=== PATIENT | male | born 1990 ===

== ENCOUNTER 2017-11-29 21:57 | Inpatient (IN) | payer MEDICARE ==
--- NOTE | 2017-11-29 22:11 | PDOC ---
History of Present Illness - General Chief Complaint: Coffee Ground Emesis Stated Complaint: DARK EMESIS Time Seen by Provider: 11/29/17 22:06 History Source: Patient Exam Limitations: No Limitations - History of Present Illness Initial Comments: 11/29/17 22:20 This is a 27-year-old male who comes in complaining of 2-3 days of indigestion epigastric pain and then this evening he said he has had 2 episodes of dark coffee ground type emesis with dark tarry stools. Patient also complaining that he is feeling lightheaded and nauseous at this time. Patient denies any recent use of NSAIDs. Patient says he is otherwise healthy and takes no medications. Patient denies any pain at this time. PAST MEDICAL HISTORY: no significant history PAST SURGICAL HISTORY: no significant history FAMILY HISTORY: no pertinant history SOCIAL HISTORY: Pt lives with family and is employed. MEDICATIONS: reviewed ALLERGIES: As per nursing notes Review of Systems General: No fevers or chills, no weakness, no weight loss HEENT: No change in vision. No sore throat,. No ear pain CardioVascular: No chest pain or shortness of breath Respiratory:No cough, or wheezing. Gastrointestinal: + nausea, +vomitting, no diarrhea or constipation, + dark stools Genitourinary: No dysuria, hematuria, or frequency Musculoskeletal: No joint or muscle pain or swelling Neurologic: No headache, vertigo, dizziness or loss of consciousness Psychiatric: nor depression Skin: No rashes or easy bruising Endocrine: no increased thirst or abnormal weight change Allergic: no skin or latex allergy All other systems reviewed and normal Exam: General: Well-nourished well-developed individual, no acute distress HEENT: Throat: Normal, tonsils normal, no erythema or exudate Neck: Supple, no meningeal signs, no lymphadenopathy Eyes::Pupils equal reactive and round, extraocular motion intact Chest: Nontender to palpation Cardiac: S1-S2 normal, regular rate and rhythm, no murmurs rubs or gallops Respiratory: Lungs clear to auscultation bilateral Abdomen: Soft, nondistended, normal bowel sounds, nontender to palpation diffusely Rectal: Nontender exam with dark tarry stool Extremities: Warm, dry, no cyanosis, clubbing, or edema Skin: No rashes Neuro: Alert and oriented x3, CN II - XII intact, nonfocal exam with normal strength, normal sensation, normal reflexes, normal gait, Psych: Normal mood and affect Procedure note NG tube placement NG tube was placed by me. Post tube placement there was approximately 100 mL of coffee-ground liquid suctioned. NG tube was left in place for approximately one hour post one hour no further drainage and NG tube was irrigated with return of clear fluid. NG tube was removed. Medical decision making: This is a 27-year-old male with an upper GI bleed. Patient arrives tachycardic well give 1 L of fluid wide open and reassess heart rate. Pepcid ordered Lab sent CBC, comp, type and screen, Will reassess 12MN Post 1 L fluid patient's heart rate is now around 100. Patient is hemodynamically stable. Patient feels better no further vomiting. Assessment and plan: This is a 27-year-old male who comes in with upper GI bleed. Patient had coffee-ground emesis guaiac-positive dark tarry stool. Patient H&H initially is 11 and 33. Patient will be placed in observation bed for further management and GI consult/ evaluation. Past History - Past Medical History Allergies/Adverse Reactions: Allergies Allergy/AdvReac Type Severity Reaction Status Date / Time No Known Allergies Allergy Verified 11/29/17 22:05 Home Medications: Ambulatory Orders NK [No Known Home Medication] 11/29/17 ED Treatment Course - LABORATORY CBC & Chemistry Diagram: 11/29/17 22:42 11/29/17 22:42 *DC/Admit/Observation/Transfer Diagnosis at time of Disposition: Upper GI bleed - Discharge Dispostion Condition at time of disposition: Good Admit: Yes - Referrals - Patient Instructions - Post Discharge Activity
[2017-11-29] MEDS ORDERED: SODIUM CHLORIDE 1,000 ML IV ONE ×3 (22:25→22:50)
[2017-11-29] MEDS ORDERED: ONDANSETRON 4 MG/2 ML VIAL IVPB ONE (22:26)
[2017-11-29] MEDS ORDERED: PANTOPRAZOLE SODIUM 40 MG VIAL IVPUSH ONE (22:30)
[2017-11-29] MEDS ORDERED: PANTOPRAZOLE SODIUM 40 MG VIAL ONE (22:44)
[2017-11-29 23:07] LABS: BASO % 0.1 % (0-2.0); EOS % 0.5 % (0-4.5); HEMATOCRIT 33.4 % (35.4-49); HEMOGLOBIN 11.2 GM/dL (11.7-16.9); LYMPH % 11.4 % (8-40); MCH 29.6 pg (25.7-33.7); MCHC 33.6 g/dl (32.0-35.9); MEAN CELL VOLUME 88.1 fl (80-96); MEAN PLT VOLUME 9.7 fl (7.5-11.1); MONO % 5.4 % (3.8-10.2); NEUT % 82.6 % (42.8-82.8); PLATELET COUNT 367 K/MM3 (134-434); RDW 12.5 % (11.9-15.9); WHITE BLOOD COUNT 22.3 K/mm3 (4.0-10.0)
[2017-11-29 23:23] LABS: BILIRUBIN,TOTAL 0.3 mg/dL (0.2-1.0); CHLORIDE 100 mmol/L (98-107); POTASSIUM 3.8 mmol/L (3.5-5.1); SODIUM 139 mmol/L (136-145)
[2017-11-29 23:32] LABS: INR 1.12 (0.82-1.09); PROTHROMBIN TIME (PATIENT) 12.6 SEC (9.98-11.88)
[2017-11-29 23:34] LABS: ANION GAP 12 (8-16); BLOOD UREA NITROGEN 36 mg/dL (7-18); CALCIUM 9.4 mg/dL (8.5-10.1); CO2 27 mmol/L (21-32); GLUCOSE,RANDOM 129 mg/dL (74-106)
[2017-11-29 23:41] LABS: ALK PHOS 55 U/L (45-117); CREATININE 1.1 mg/dL (0.7-1.3); SGOT/AST 14 U/L (15-37); SGPT/ALT 26 U/L (12-78)
[2017-11-30] MEDS ORDERED: PANTOPRAZOLE SODIUM 80 MG in SODIUM CHLORIDE 100 ML IVPB SCH (00:30)
[2017-11-30 02:31] VITALS: BMI 23.1
[2017-11-30 04:28] LABS: BASO % 0.1 % (0-2.0); EOS % 0.1 % (0-4.5); HEMATOCRIT 26.3 % (35.4-49); HEMOGLOBIN 8.7 GM/dL (11.7-16.9); LYMPH % 10.5 % (8-40); MCH 29.5 pg (25.7-33.7); MCHC 33.2 g/dl (32.0-35.9); MEAN CELL VOLUME 88.9 fl (80-96); MEAN PLT VOLUME 9.7 fl (7.5-11.1); MONO % 2.2 % (3.8-10.2); NEUT % 87.1 % (42.8-82.8); PLATELET COUNT 266 K/MM3 (134-434); RBC 2.96 M/mm3 (4.00-5.60); RDW 12.3 % (11.9-15.9)
[2017-11-30] MEDS ORDERED: ACETAMINOPHEN 1000 MG/100 ML VIAL (NON FORMULARY) IVPB PRN (07:05)
[2017-11-30 07:33] LABS: BASO % 0.2 % (0-2.0); EOS % 0.9 % (0-4.5); HEMATOCRIT 23.5 % (35.4-49); LYMPH % 28.3 % (8-40); MCH 29.8 pg (25.7-33.7); MCHC 33.9 g/dl (32.0-35.9); MEAN CELL VOLUME 87.9 fl (80-96); MEAN PLT VOLUME 8.9 fl (7.5-11.1); NEUT % 65.6 % (42.8-82.8); PLATELET COUNT 240 K/MM3 (134-434); RBC 2.68 M/mm3 (4.00-5.60); RDW 12.5 % (11.9-15.9); WHITE BLOOD COUNT 11.9 K/mm3 (4.0-10.0)
[2017-11-30 07:44] LABS: INR 1.17 (0.82-1.09); PROTHROMBIN TIME (PATIENT) 13.2 SEC (9.98-11.88)
[2017-11-30 07:47] LABS: ACTIVATED PTT 26.6 SECONDS (26.9-34.4)
[2017-11-30 08:23] LABS: ANION GAP 8 (8-16); BLOOD UREA NITROGEN 21 mg/dL (7-18); CALCIUM 7.4 mg/dL (8.5-10.1); CHLORIDE 107 mmol/L (98-107); CO2 28 mmol/L (21-32); CREATININE 1.1 mg/dL (0.7-1.3); GLUCOSE,RANDOM 100 mg/dL (74-106); POTASSIUM 3.7 mmol/L (3.5-5.1); SODIUM 143 mmol/L (136-145)
--- NOTE | 2017-11-30 09:58 | HP ---
CHIEF COMPLAINT: Coffee-ground emesis and epigastric pain PCP: None HISTORY OF PRESENT ILLNESS: 27 year-old male with no PMH presents to the ED with a complaint epigastric pain x 2-3 days, and several episodes of coffee-ground emesis and dark, watery stools just prior to his presentation in the ED. 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 The epigastric pain started after he had whiskey, beer, and chile. It is not unusual for him to eat and drink in this fashion, but he thinks "it's starting to catch up with me." Patient has an identical twin brother who was recently diagnosed with gastric ulcers. Patient denies fever, sweats, chills. 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 Smoking: quit a few months ago Alcohol: several times per week Drugs: has tried cocaine and marijuana, no recent use Family History: mother and father both a&w; identical twin brother with recent diagnosis of gastric ulcers Allergies No Known Allergies Allergy (Verified 11/29/17 22:05) HOME MEDICATIONS: Home Medications Medication Instructions Recorded NK [No Known Home Medication] 11/29/17 REVIEW OF SYSTEMS CONSTITUTIONAL: Absent: fever, chills, diaphoresis, generalized weakness, malaise, loss of appetite, weight change HEENT: Absent: rhinorrhea, nasal congestion, throat pain, throat swelling, difficulty swallowing, mouth swelling, ear pain, eye pain, visual changes CARDIOVASCULAR: Absent: chest pain, syncope, palpitations, irregular heart rate, lightheadedness , peripheral edema RESPIRATORY: Absent: cough, shortness of breath, dyspnea with exertion, orthopnea, wheezing, stridor, hemoptysis GASTROINTESTINAL: +epigastric pain, nausea, vomiting coffee-ground liquid, diarrhea Absent: abdominal pain, abdominal distension, nausea, vomiting, diarrhea, constipation, melena, hematochezia GENITOURINARY: Absent: dysuria, frequency, urgency, hesitancy, hematuria, flank pain, genital pain MUSCULOSKELETAL: Absent: myalgia, arthralgia, joint swelling, back pain, neck pain SKIN: Absent: rash, itching, pallor HEMATOLOGIC/IMMUNOLOGIC: Absent: easy bleeding, easy bruising, lymphadenopathy, frequent infections ENDOCRINE: Absent: unexplained weight gain, unexplained weight loss, heat intolerance, cold intolerance NEUROLOGIC: Absent: headache, focal weakness or paresthesias, dizziness, unsteady gait, seizure, mental status changes, bladder or bowel incontinence PSYCHIATRIC: Absent: anxiety, depression, suicidal or homicidal ideation, hallucinations. PHYSICAL EXAMINATION Vital Signs - 24 hr 11/29/17 11/29/17 11/30/17 22:06 23:27 02:19 Temperature 98.6 F 98.1 F Pulse Rate 120 H 95 H Pulse Rate [ 100 H Left] Respiratory 16 16 18 Rate Blood Pressure 124/96 120/51 Blood Pressure 138/79 [Right] O2 Sat by Pulse 100 100 100 Oximetry (%) 11/30/17 11/30/17 11/30/17 07:22 07:39 09:43 Temperature 98.4 F 98.5 F Pulse Rate 97 H 83 Pulse Rate [ Left] Respiratory 18 18 18 Rate Blood Pressure 111/58 111/51 Blood Pressure [Right] O2 Sat by Pulse 97 97 100 Oximetry (%) GENERAL: Awake, alert, and fully oriented, in no acute distress. HEAD: Normal with no signs of trauma. EYES: Pupils equal, round and reactive to light, extraocular movements intact, sclera anicteric, conjunctiva clear. No lid lag. EARS, NOSE, THROAT: Ears normal, nares patent, oropharynx clear without exudates. Moist mucous membranes. NECK: Normal range of motion, supple without lymphadenopathy, JVD, or masses. LUNGS: Breath sounds equal, clear to auscultation bilaterally. No wheezes, and no crackles. No accessory muscle use. HEART: Regular rate and rhythm, normal S1 and S2 without murmur, rub or gallop. ABDOMEN: Soft, nontender, not distended, normoactive bowel sounds, no guarding, no rebound, no masses. MUSCULOSKELETAL: Normal range of motion at all joints. No bony deformities or tenderness. No CVA tenderness. UPPER EXTREMITIES: 2+ pulses, warm, well-perfused. No cyanosis. No clubbing. No peripheral edema. LOWER EXTREMITIES: 2+ pulses, warm, well-perfused. No calf tenderness. No peripheral edema. NEUROLOGICAL: Cranial nerves II-XII intact. Normal speech. Normal gait. PSYCHIATRIC: Cooperative. Good eye contact. Appropriate mood and affect. SKIN: Warm, dry, normal turgor, no rashes or lesions noted, normal capillary refill. Laboratory Results - last 24 hr 11/29/17 11/29/17 11/29/17 22:25 22:42 22:42 WBC 22.3 H RBC 3.80 L Hgb 11.2 L Hct 33.4 L MCV 88.1 MCH 29.6 MCHC 33.6 RDW 12.5 Plt Count 367 MPV 9.7 Neutrophils % 82.6 Lymphocytes % 11.4 Monocytes % 5.4 Eosinophils % 0.5 Basophils % 0.1 PT with INR INR PTT (Actin FS) Sodium 139 Potassium 3.8 Chloride 100 Carbon Dioxide 27 Anion Gap 12 BUN 36 H Creatinine 1.1 Creat Clearance w eGFR > 60 Random Glucose 129 H Lactic Acid Calcium 9.4 Total Bilirubin 0.3 AST 14 L ALT 26 Alkaline Phosphatase 55 Total Protein 7.0 Albumin 4.0 Stool Occult Blood Blood Type A POSITIVE Antibody Screen 11/29/17 11/29/17 11/29/17 22:42 22:42 22:42 WBC RBC Hgb Hct MCV MCH MCHC RDW Plt Count MPV Neutrophils % Lymphocytes % Monocytes % Eosinophils % Basophils % PT with INR 12.60 H INR 1.12 PTT (Actin FS) Sodium Potassium Chloride Carbon Dioxide Anion Gap BUN Creatinine Creat Clearance w eGFR Random Glucose Lactic Acid Calcium Total Bilirubin AST ALT Alkaline Phosphatase Total Protein Albumin Stool Occult Blood Positive Blood Type A POSITIVE Antibody Screen Negative 11/30/17 11/30/17 11/30/17 01:22 01:35 06:40 WBC 15.0 H D 11.9 H RBC 2.96 L D 2.68 L Hgb 8.7 L D 8.0 L Hct 26.3 L D 23.5 L MCV 88.9 87.9 MCH 29.5 29.8 MCHC 33.2 33.9 RDW 12.3 12.5 Plt Count 266 D 240 MPV 9.7 8.9 Neutrophils % 87.1 H 65.6 D Lymphocytes % 10.5 28.3 D Monocytes % 2.2 L 5.0 D Eosinophils % 0.1 0.9 D Basophils % 0.1 0.2 PT with INR INR PTT (Actin FS) Sodium Potassium Chloride Carbon Dioxide Anion Gap BUN Creatinine Creat Clearance w eGFR Random Glucose Lactic Acid 2.6 H* Calcium Total Bilirubin AST ALT Alkaline Phosphatase Total Protein Albumin Stool Occult Blood Blood Type Antibody Screen 11/30/17 11/30/17 11/30/17 06:40 06:40 06:40 WBC RBC Hgb Hct MCV MCH MCHC RDW Plt Count MPV Neutrophils % Lymphocytes % Monocytes % Eosinophils % Basophils % PT with INR 13.20 H INR 1.17 H PTT (Actin FS) 26.6 L Sodium 143 Potassium 3.7 Chloride 107 Carbon Dioxide 28 Anion Gap 8 BUN 21 H D Creatinine 1.1 Creat Clearance w eGFR Random Glucose 100 D Lactic Acid 1.8 Calcium 7.4 L D Total Bilirubin AST ALT Alkaline Phosphatase Total Protein Albumin Stool Occult Blood Blood Type Antibody Screen ASSESSMENT/PLAN 27 year-old male with no significant PMH placed admitted for upper GI bleed. Upper GI bleed --coffee-ground liquid via NGT --occult stool positive --Hgb 11.2-->8.0 but dilutional component, received 3L NS in ED --repeat cbc q6h, transfuse Hgb <7 --check lipase --collect and send H.pylori stool, serum Ab (patient does NOT want EGD) --continue protonix drip --start carafate QID --IV fluids --Dr. Banks contacted, consult pending Leukocytosis --WBC 22.3-->11.9k --likely reactive --afebrile --no antibiotics for now Lactic acidosis --resolved FEN Fluids: D51/2 @ 75mL/hr Electrolytes: replete as indicated Nutrition: NPO DVT prophylaxis: subq heparin, oob, ambulation Dispo: continues to require inpatient care. Visit type - Emergency Visit Emergency Visit: Yes ED Registration Date: 11/30/17 Care time: The patient presented to the Emergency Department on the above date and was hospitalized for further evaluation of their emergent condition. - New Patient This patient is new to me today: Yes Date on this admission: 11/30/17 - Critical Care Critical Care patient: No
--- NOTE | 2017-11-30 10:11 | PN ---
Progress Note (short form) - Note Progress Note: GI NOte ( covering Dr Connolly) : I spoke with Olivia the patient's nurse to inform her that another stockkeeper on staff will need to be consulted as Dr Connolly will not be available until tomorrow and I do not have privileges at [facility]. She told me that she would notify the hospitalist.
[2017-11-30 13:04] LABS: HEMATOCRIT 25.9 % (35.4-49); HEMOGLOBIN 8.8 GM/dl (11.7-16.9); MCH 30.3 pg (25.7-33.7); MCHC 33.8 g/dl (32.0-35.9); MEAN CELL VOLUME 89.7 fl (80-96); MEAN PLT VOLUME 9.6 fl (7.5-11.1); PLATELET COUNT 278 K/MM3 (134-434); RBC 2.89 M/mm3 (4.00-5.60); RDW 11.9 % (11.9-15.9); WHITE BLOOD COUNT 10.6 K/mm3 (4.0-10.8)
[2017-11-30 19:44] LABS: HEMATOCRIT 22.8 % (35.4-49); HEMOGLOBIN 7.8 GM/dl (11.7-16.9); MCH 30.6 pg (25.7-33.7); MCHC 34.2 g/dl (32.0-35.9); MEAN CELL VOLUME 89.5 fl (80-96); MEAN PLT VOLUME 9.5 fl (7.5-11.1); PLATELET COUNT 235 K/MM3 (134-434); RBC 2.54 M/mm3 (4.00-5.60); RDW 11.6 % (11.9-15.9)
[2017-11-30] MEDS: SUCRALFATE 1 GM TABLET (FP) PO SCH (21:16)
[2017-11-30] MEDS: PANTOPRAZOLE 40 MG TABLET (FP) PO SCH (21:16)
[2017-11-30 23:50] LABS: HEMATOCRIT 23.6 % (35.4-49); HEMOGLOBIN 7.9 GM/dl (11.7-16.9); MCHC 33.3 g/dl (32.0-35.9); MEAN PLT VOLUME 8.7 fl (7.5-11.1); PLATELET COUNT 232 K/MM3 (134-434); RBC 2.62 M/mm3 (4.00-5.60); RDW 11.8 % (11.9-15.9); WHITE BLOOD COUNT 7.6 K/mm3 (4.0-10.8)
--- NOTE | 2017-12-01 07:41 | PN ---
Physical Exam: SUBJECTIVE: Patient seen and examined, denies any abdominal pain, awaiting EGD scheduled for 10am. OBJECTIVE: patient is a 27 y/o male with no significant past medical history, patient was admitted from the emergency department for an upper GI bleed. Vital Signs Period Temp Pulse Resp BP Sys/Boucher Pulse Ox Last 24 Hr 98.5 F-98.7 F 65-86 18-18 99-111/42-53 99-100 GENERAL: The patient is awake, alert, and fully oriented, in no acute distress. HEAD: Normal with no signs of trauma. EYES: PERRL, extraocular movements intact, sclera anicteric, conjunctiva clear. No ptosis. ENT: Ears normal, nares patent, oropharynx clear without exudates, moist mucous membranes. NECK: Trachea midline, full range of motion, supple. LUNGS: Breath sounds equal, clear to auscultation bilaterally, no wheezes, no crackles, no accessory muscle use. HEART: Regular rate and rhythm, S1, S2 without murmur, rub or gallop. ABDOMEN: Soft, epigastric tenderness, nondistended, normoactive bowel sounds, no guarding, no rebound, no hepatosplenomegaly, no masses. EXTREMITIES: 2+ pulses, warm, well-perfused, no edema. NEUROLOGICAL: Cranial nerves II through XII grossly intact. Normal speech, gait not observed. PSYCH: Normal mood, normal affect. SKIN: Warm, dry, normal turgor, no rashes or lesions noted Laboratory Results - last 24 hr CBC WBC 7.8 K/mm3 (4.0-10.8) 12/01/17 07:15 RBC 2.72 M/mm3 (4.00-5.60) L 12/01/17 07:15 Hgb 8.2 GM/dl (11.7-16.9) L 12/01/17 07:15 Hct 24.5 % (35.4-49) L 12/01/17 07:15 MCV 90.4 fl (80-96) 12/01/17 07:15 MCH 30.2 pg (25.7-33.7) 12/01/17 07:15 MCHC 33.4 g/dl (32.0-35.9) 12/01/17 07:15 RDW 11.6 % (11.9-15.9) L 12/01/17 07:15 Plt Count 241 K/MM3 (134-434) 12/01/17 07:15 MPV 9.8 fl (7.5-11.1) D 12/01/17 07:15 Neutrophils % 65.6 % (42.8-82.8) D 11/30/17 06:40 Lymphocytes % 28.3 % (8-40) D 11/30/17 06:40 Monocytes % 5.0 % (3.8-10.2) D 11/30/17 06:40 Eosinophils % 0.9 % (0-4.5) D 11/30/17 06:40 Basophils % 0.2 % (0-2.0) 11/30/17 06:40 CMP Sodium 137 mmol/L (136-145) 12/01/17 07:15 Potassium 3.8 mmol/L (3.5-5.1) 12/01/17 07:15 Chloride 103 mmol/L (98-107) 12/01/17 07:15 Carbon Dioxide 28 mmol/L (22-28) 12/01/17 07:15 Anion Gap 6 (8-16) L 12/01/17 07:15 BUN 12 mg/dl (7-18) 12/01/17 07:15 Creatinine 1.1 mg/dl (0.6-1.3) 12/01/17 07:15 Creat Clearance w eGFR > 60 (>60) 12/01/17 07:15 Random Glucose 99 mg/dl (74-106) 12/01/17 07:15 Lactic Acid 1.8 mmol/L (0.4-2.0) 11/30/17 06:40 Calcium 8.7 mg/dl (8.4-10.2) 12/01/17 07:15 Magnesium 1.6 mg/dL (1.8-2.4) L 12/01/17 07:15 Total Bilirubin 0.8 mg/dl (0.2-1.0) 12/01/17 07:15 AST 20 U/L (10-42) 12/01/17 07:15 ALT 17 U/L (10-40) 12/01/17 07:15 Alkaline Phosphatase 36 U/L (32-92) 12/01/17 07:15 Total Protein 5.4 g/dl (6.4-8.3) L 12/01/17 07:15 Albumin 3.3 g/dl (3.5-5.0) L 12/01/17 07:15 Lipase 25 U/L (22-51) 11/30/17 12:30 Active Medications Generic Name Dose Route Start Last Admin Trade Name Lambertoq PRN Reason Stop Dose Admin Acetaminophen 1,000 mg 11/30/17 07:05 11/30/17 08:05 Ofirmev Injection - IVPB 1,000 mg Q6H PRN Administration FEVER OR PAIN Dextrose/Sodium Chloride 1,000 mls @ 75 mls/hr 11/30/17 10:15 D5-1/2ns - IV ASDIR KARLA Pantoprazole Sodium 40 mg 11/30/17 13:17 11/30/17 21:16 Protonix - PO 40 mg BID KARLA Administration Sucralfate 1 gm 11/30/17 14:00 11/30/17 21:16 Carafate - PO 1 gm QID KARLA Administration Microbiology 11/30/17 03:18 Blood - Peripheral Venous Blood Culture - Preliminary NO GROWTH OBTAINED AFTER 24 HOURS, INCUBATION TO CONTINUE FOR 4 DAYS. 11/30/17 03:18 Blood - Peripheral Venous Blood Culture - Preliminary NO GROWTH OBTAINED AFTER 24 HOURS, INCUBATION TO CONTINUE FOR 4 DAYS. ASSESSMENT/PLAN: 1) GI: Upper GI bleed - s/p egd completed by Dr Banks, ketty long tear noted, may start soft diet, continue protonix bid and carafate qid - repeat cbc 8.2, patient is asymptomatic, continue q6h cbc, will transfuse if less than 7 - Dr Banks, GI, consulted and following 2) heme Leukocytosis - resolved, blood cultures are NTD FEN Fluids: tolerating PO Electrolytes: replete as indicated Nutrition: soft diet DVT prophylaxis: subq heparin, oob, ambulation Dispo: continues to require inpatient care. Visit type - Emergency Visit Emergency Visit: Yes ED Registration Date: 11/30/17 Care time: The patient presented to the Emergency Department on the above date and was hospitalized for further evaluation of their emergent condition. - New Patient This patient is new to me today: Yes Date on this admission: 12/01/17 - Critical Care Critical Care patient: No - Discharge Referral Referred to [facility] Med P.C.: No
[2017-12-01] MEDS: PANTOPRAZOLE 40 MG TABLET (FP) PO SCH ×3 (07:52→22:00)
[2017-12-01] MEDS: SUCRALFATE 1 GM TABLET (FP) PO SCH ×5 (07:52→22:01)
[2017-12-01] MEDS: DEXTROSE 5%-0.45% SALINE 1,000 ML IV SCH (07:52)
[2017-12-01 08:01] LABS: HEMATOCRIT 24.5 % (35.4-49); HEMOGLOBIN 8.2 GM/dl (11.7-16.9); MCH 30.2 pg (25.7-33.7); MCHC 33.4 g/dl (32.0-35.9); MEAN CELL VOLUME 90.4 fl (80-96); MEAN PLT VOLUME 9.8 fl (7.5-11.1); PLATELET COUNT 241 K/MM3 (134-434); RBC 2.72 M/mm3 (4.00-5.60); RDW 11.6 % (11.9-15.9); WHITE BLOOD COUNT 7.8 K/mm3 (4.0-10.8)
[2017-12-01 08:10] LABS: ALBUMIN 3.3 g/dl (3.5-5.0); ALK PHOS 36 U/L (32-92); ANION GAP 6 (8-16); BILIRUBIN,TOTAL 0.8 mg/dl (0.2-1.0); BLOOD UREA NITROGEN 12 mg/dl (7-18); CALCIUM 8.7 mg/dl (8.4-10.2); CHLORIDE 103 mmol/L (98-107); CO2 28 mmol/L (22-28); CREATININE 1.1 mg/dl (0.6-1.3); GLUCOSE,RANDOM 99 mg/dl (74-106); MAGNESIUM 1.6 mg/dL (1.8-2.4); POTASSIUM 3.8 mmol/L (3.5-5.1); SGOT/AST 20 U/L (10-42); SGPT/ALT 17 U/L (10-40); SODIUM 137 mmol/L (136-145); TOT PROT 5.4 g/dl (6.4-8.3)
[2017-12-01] MEDS ORDERED: MAGNESIUM SULFATE 2 GM in SODIUM CHLORIDE 100 ML IVPB ONE (08:19)
[2017-12-01] MEDS ORDERED: MAGNESIUM SULF 50% (8.12 MEQ/2 ML-1 GM VIAL) IVPB ONE (09:00)
[2017-12-01] MEDS ORDERED: LIDOCAINE HCL/PF 2% SDV 5ML VIAL ONE (09:47)
[2017-12-01] MEDS ORDERED: PROPOFOL 20 ML ONE ×2 (09:47)
[2017-12-01] MEDS ORDERED: PANTOPRAZOLE 40 MG TABLET (FP) PO SCH (10:00)
--- NOTE | 2017-12-01 10:13 | PN ---
Progress Note (short form) - Note Progress Note: Patient seen and chart/labs reviewed. Consult dictated and EGD to be arranged for this am.
--- NOTE | 2017-12-01 10:16 | PN ---
Progress Note (short form) - Note Progress Note: Upper endoscopy performed with findings notable for a healing Belinda-Holden tear immediately above the GE junction; nonbleeding. Full report in chart. Recommend; switch IV to PO PPI bid begin on soft diet monitor CBC if stable, can consider discharge late today or tomorrow with outpatient followup
--- NOTE | 2017-12-01 11:18 | CONS ---
DATE OF CONSULTATION: 12/01/2017 REASON FOR CONSULTATION: I was asked to evaluate this 27-year-old gentleman with coffee-ground emesis and anemia. HISTORY OF PRESENT ILLNESS: The patient is a 27-year-old gentleman who has been generally healthy and active. He states that he had had some alcoholic beverages to drink 1-2 days prior to admission with some epigastric discomfort. He subsequently had some vomiting of dark/coffee-ground emesis as well as some black stool. He presented to the emergency room with the aforementioned complaints and feeling some nausea and lightheadedness. The patient was noted to have hemoccult positive stool. An NG tube was passed with approximately 100 mL of coffee-ground material suctioned. The patient denies any prior history of GI bleeding and had no prior history of ulcer disease. He also had no known liver disease or other active medical problems. He denies the use of aspirin or NSAIDS. His admission blood work included a hemoglobin of 11.2, hematocrit 33.4, with a white count of 22,000. His subsequent blood tests during the hospitalization included a drop in his hematocrit from the initial level to 26, then 23.5, and most recently 24.5. His white count has gradually gone down to 7.8 and his platelet count has remained relatively stable at 241. His chemistry panel included a BUN initially of 36 with a creatinine of 1.1, which has now gone down to 12 and 1.1. His liver chemistry has been unremarkable and a serum lipase was 25. There was no relevant family history of GI illness or malignancy, and no history of smoking. The patient is currently on PPI therapy, has no further melena, and no epigastric pain. EXAMINATION: General: He is a well-developed, mildly pale-appearing gentleman with pale to pink conjunctiva. Lungs: Clear lungs. Cardiac: Irregular rate and rhythm. . Abdomen: Soft abdomen with normoactive bowel sounds and no tenderness. IMPRESSION: Patient appears to have had an upper gastrointestinal bleed, possibly from peptic disease. There is no evidence to suggest underlying liver disease/varices. The possibility of a Belinda-Holden tear cannot be excluded, although he does not give a history of retching or bright red blood in his emesis. I agree with intravenous proton pump inhibitor therapy and will arrange for upper endoscopy for further evaluation. FORTINO LOPEZ M.D. [id number]
[2017-12-01 13:32] LABS: WHITE BLOOD COUNT 8.9 K/mm3 (4.0-10.8)
[2017-12-01 14:14] LABS: HEMATOCRIT 25.2 % (35.4-49); HEMOGLOBIN 8.5 GM/dl (11.7-16.9); MCH 30.2 pg (25.7-33.7); MCHC 33.7 g/dl (32.0-35.9); MEAN CELL VOLUME 89.7 fl (80-96); PLATELET COUNT 263 K/MM3 (134-434); RBC 2.81 M/mm3 (4.00-5.60); RDW 11.8 % (11.9-15.9)
[2017-12-01] MEDS ORDERED: PT OWN MED DRAWER 7, Y5N ONE ×3 (15:23→21:33)
[2017-12-01] MEDS: ACETAMINOPHEN 325 MG TABLET (FP) PO PRN ×2 (15:26→20:06)
[2017-12-01 16:17] LABS: H.PYLORI AB IGM <9.0 units (0.0-8.9)
[2017-12-01] MEDS ORDERED: oxyCODONE HCL 5 MG TABLET ONE (22:27)
[2017-12-01] MEDS ORDERED: oxyCODONE HCL 5 MG TABLET PO ONE (22:30)
[2017-12-02] MEDS ORDERED: oxyCODONE HCL 5 MG TABLET PO ONE (06:20)
[2017-12-02] MEDS: DEXTROSE 5%-0.45% SALINE 1,000 ML IV SCH (08:47)
[2017-12-02] MEDS: SUCRALFATE 1 GM TABLET (FP) PO SCH ×2 (08:48→09:39)
[2017-12-02] MEDS ORDERED: PT OWN MED DRAWER 7, Y5N ONE (09:38)
[2017-12-02] MEDS: PANTOPRAZOLE 40 MG TABLET (FP) PO SCH (09:39)
[2017-12-02] MEDS ORDERED: ACETAMINOPHEN/CAFFEINE/BUTALBITAL 1 TAB PO PRN (10:15)
[2017-12-02 10:18] LABS: BASO % 0.6 % (0-2.0); EOS % 3.9 % (0-4.5); HEMOGLOBIN 8.6 GM/dl (11.7-16.9); MCH 30.9 pg (25.7-33.7); MCHC 34.4 g/dl (32.0-35.9); MEAN CELL VOLUME 89.9 fl (80-96); MEAN PLT VOLUME 9.7 fl (7.5-11.1); MONO % 6.2 % (3.8-10.2); NEUT % 52.3 % (42.8-82.8); PLATELET COUNT 278 K/MM3 (134-434); RBC 2.78 M/mm3 (4.00-5.60); RDW 11.6 % (11.9-15.9)
--- NOTE | 2017-12-02 10:36 | DS ---
Physical Exam: SUBJECTIVE: Patient seen and examined, patient denies any abdominal pain, tolerating soft diet. OBJECTIVE:27 year-old male with no PMH presents to the ED with a complaint epigastric pain x 2-3 days, and several episodes of coffee-ground emesis and dark, watery stools just prior to his presentation in the ED. 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 The epigastric pain started after he had whiskey, beer, and chile. It is not unusual for him to eat and drink in this fashion, but he thinks "it's starting to catch up with me." Patient has an identical twin brother who was recently diagnosed with gastric ulcers. Patient denies fever, sweats, chills. ER course was notable for: (1) WBC 22.3k (2) p120 (3) NS x 3L (4) Lactic acid 2.6 (5) NGT with 100cc's coffee-ground liquid (5) occult stool positive Vital Signs Period Temp Pulse Resp BP Sys/Boucher Pulse Ox Last 24 Hr 98.6 F-99.9 F 71-91 16-20 99-119/52-56 97-100 PHYSICAL EXAM GENERAL: The patient is awake, alert, and fully oriented, in no acute distress. HEAD: Normal with no signs of trauma. EYES: PERRL, extraocular movements intact, sclera anicteric, conjunctiva clear. ENT: Ears normal, nares patent, oropharynx clear without exudates, moist mucous membranes. NECK: Trachea midline, full range of motion, supple. LUNGS: Breath sounds equal, clear to auscultation bilaterally, no wheezes, no crackles, no accessory muscle use. HEART: Regular rate and rhythm, S1, S2 without murmur, rub or gallop. ABDOMEN: Soft, nontender, nondistended, normoactive bowel sounds, no guarding, no rebound, no hepatosplenomegaly, no masses. EXTREMITIES: 2+ pulses, warm, well-perfused, no edema. NEUROLOGICAL: Cranial nerves II through XII grossly intact. Normal speech, gait not observed. PSYCH: Normal mood, normal affect. SKIN: Warm, dry, normal turgor, no rashes or lesions noted. LABS Laboratory Results - last 24 hr 11/30/17 12/01/17 12/02/17 12:30 14:00 08:15 WBC 8.9 8.0 RBC 2.81 L 2.78 L Hgb 8.5 L 8.6 L Hct 25.2 L 25.0 L MCV 89.7 89.9 MCH 30.2 30.9 MCHC 33.7 34.4 RDW 11.8 L 11.6 L Plt Count 263 278 MPV 10.0 9.7 Neutrophils % 52.3 Lymphocytes % 37.0 Monocytes % 6.2 Eosinophils % 3.9 Basophils % 0.6 H. pylori IgM Antibody <9.0 Microbiology 11/30/17 03:18 Blood - Peripheral Venous Blood Culture - Preliminary NO GROWTH OBTAINED AFTER 48 HOURS, INCUBATION TO CONTINUE FOR 3 DAYS. 11/30/17 03:18 Blood - Peripheral Venous Blood Culture - Preliminary NO GROWTH OBTAINED AFTER 48 HOURS, INCUBATION TO CONTINUE FOR 3 DAYS. 11/30/17 03:18 Urine - Urine Clean Catch Urine Culture - Final NO GROWTH OBTAINED HOSPITAL COURSE: Patient was admitted from the emergency department for an upper GI bleed. PATRICIA Hodges was consulted, EGD was completed on 12/01/16, by Dr Banks, ketty long tear noted. Patient was started on a soft diet on 12/01/16, which he tolerated and protonix bid and carafate qid was continued throughout admission. normocyctic anemia, was noted upon admission repeat hemoglobin 8.6, patient is asymptomatic. leukocytosis resolved and blood cultures are negative to date. PLAN: - discharge home on protonix and carafate - soft bland diet - follow up with PATRICIA Hodges within 2 weeks Date of Admission:11/30/17 Date of Discharge: 12/02/17 Minutes to complete discharge: 45 Discharge Summary Reason For Visit: UPPER GI HEMORRHAGE Current Active Problems Upper GI bleed (Acute) Condition: Improved - Instructions Diet, Activity, Other Instructions: continue protonix and carafate as prescribed continue bland soft diet please follow up with GIDr Banks within 2 weeks if any new or persistent symptoms develop please return to the emergency department Referrals: Sebastian Banks MD [Staff Physician] - Disposition: HOME - Home Medications Comprehensive Discharge Medication List: Ambulatory Orders NK [No Known Home Medication] 11/29/17 This patient is new to me today: No Emergency Visit: Yes ED Registration Date: 11/30/17 Care time: The patient presented to the Emergency Department on the above date and was hospitalized for further evaluation of their emergent condition. Critical Care patient: No - Discharge Referral Referred to [facility] Med P.C.: No
[2017-12-02 11:59] VITALS: BP 111/67; PULSE 67; TEMP 98.8
--- NOTE | 2017-12-03 13:40 | PATH ---
Surgical Pathology Report Patient Name: LUIS BALLARD Med. Rec. #: [id number] /Age/Gender: 1990 (Age: 27) / M Account: [id number] Location: [facility] Taken: 12/01/2017 Received: 12/01/2017 Reported: 12/03/2017 Physicians: Skinny Ruth ACNP Specimen(s) Received A: DUODENUM CELIAC DISEASE B: BX ANTRUM Clinical History Preoperative diagnosis: GI bleed Postoperative diagnosis: Esophagitis, Belinda Holden tear Final Diagnosis A. DUODENUM, BIOPSY: DUODENAL MUCOSA WITHOUT SIGNIFICANT PATHOLOGIC FINDINGS. NO EVIDENCE OF CELIAC DISEASE. B. STOMACH, ANTRUM, BIOPSY: GASTRIC ANTRAL MUCOSA WITH MILD CHRONIC GASTRITIS. IMMUNOHISTOCHEMICAL STAIN FOR H. PYLORI IS NEGATIVE. Electronically Signed Jacki Velásquez M.D. Gross Description A. Received in formalin, labeled "duodenum" is a beck, irregular portion of soft tissue measuring 0.8 cm. in greatest dimension. The specimen is submitted in toto in one cassette. B. Received in formalin, labeled "antrum" is a beck, irregular portion of soft tissue measuring 0.5 cm. in greatest dimension. The specimen is submitted in toto in one cassette. 12/02/201712/02/2017
== END 2017-12-02 12:30 | disposition home or self-care (01) | DRG 253 ==
LOC: FER 21:57 → FM/S 11-30 00:50 → OBSVTOIN 11-30 03:19 → FM/S 12-02 09:35
PROVIDERS: ADMIT Internal Medicine; ATTEND Nurse Practitioner Family
PROC: 0DB78ZX Excision of Stomach, Pylorus, Via Natural or Artificial Opening Endoscopic, Diagnostic (ICD-10-PCS; 2017-12-01)
PROC: 0DB98ZX Excision of Duodenum, Via Natural or Artificial Opening Endoscopic, Diagnostic (ICD-10-PCS; principal; 2017-12-01 10:03)
DX: K92.2 Gastrointestinal hemorrhage, unspecified (principal); K22.6 Gastro-esophageal laceration-hemorrhage syndrome; E87.2 Acidosis; D72.829 Elevated white blood cell count, unspecified; D64.9 Anemia, unspecified; K29.50 Unspecified chronic gastritis without bleeding; K92.0 Hematemesis
CPT/HCPCS: 36415; 71010-TC; 80048; 80053; 82272; 83605; 83690; 83735; 85025; 85027; 85610; 85730; 86677; 86850; 86900; 86901; 87040; 87086; 88305-TC; 99283-25; G0378